=== PATIENT | male | born 1960 | race Caucasian/White ===

== ENCOUNTER 2022-10-28 11:03 | Emergency (ER) | payer MEDICAID ==
[~2022-10-28] VITALS: Ht 205.7 cm; Wt 136.1 kg
[2022-10-28] MEDS ORDERED: LEVO750T46 PO (11:13)
--- NOTE | 2022-10-28 11:24 | NUR ---
seen and examined by
[2022-10-28 11:55] LABS: HEMATOCRIT 44.4 % (36.7-47.1); MEAN CORPUSCULAR HEMOGLOBIN 31.2 uug (23.8-33.4); MEAN CORPUSCULAR VOLUME 93.9 fL (73.0-96.2); PLATELET COUNT (AUTO) 252 K/uL (152-348)
[2022-10-28 12:05] LABS: CREATININE 1.2 mg/dL (0.6-1.3); POTASSIUM 4.2 mmol/L (3.5-5.1)
[2022-10-28] MEDS ORDERED: CEFEPIME HCL 1 G in IV DEXTROSE 5% 50 ML IV ONE (12:15)
[2022-10-28] MEDS ORDERED: VANCOMYCIN IV 1,000 MG in IV DEXTROSE 5% 250 ML IV ONE (12:15)
[2022-10-28] MEDS ORDERED: CEFEPIME HCL 1 G VIAL ONE (12:38)
[2022-10-28] MEDS ORDERED: VANCOMYCIN IV 200 ML ONE (12:38)
--- NOTE | 2022-10-28 14:45 | NUR ---
give all due meds as ordered, pt. doesnt want to be admitted. signed AMA. informed
[2022-10-28 14:55] VITALS: BP 112/80; TEMP 98; O2SAT 99
== END 2022-10-28 14:56 | disposition home or self-care (01) ==
LOC: ER 11:09
DX: M86.9 Osteomyelitis, unspecified (principal); Z79.2 Long term (current) use of antibiotics
CPT/HCPCS: 99284; 96365; 96366; 80048; 85025; 85651; 86140; 87040 ×2; 36415; 73630; 96368; J0692; J3370; A4663